=== PATIENT | male | born 1950 | race Caucasian/White ===

== ENCOUNTER → 2017-01-23 | Outpatient (CLI) | payer MEDICARE, OTHER ==
[~2017-01-23] MED LIST: ARTANE2 MG PO; ARTANE5 MG PO; FLOMAX0.4 MG PO; LORTAB 5-325 M1 EACH PO; SERTRALINE HCL50 MG PO; SINEMET 25-1001 EACH PO; ZOFRAN ODT8 MG PO
== END | disposition home or self-care (01) ==
LOC: CDC 14:08
DX: I45.89 Other specified conduction disorders (principal); R94.31 Abnormal electrocardiogram [ECG] [EKG]
CPT/HCPCS: 93000